=== PATIENT | male | born 1955 | race Caucasian/White ===

== ENCOUNTER → 2020-05-31 | Outpatient (CLI) | payer MEDICARE ==
[~2020-05-31] MED LIST: AMIT10TA PO; BUPIVACAINE/PF-EPI 0.25% 1:200K ONE; FENTANYL PF 100 MCG/2ML ONE; MIDAZOLAM 1 MG/ML, 2ML ONE
== END | disposition home or self-care (01) ==
LOC: STAR 10:23
PROVIDERS: ATTEND Orthopaedic Surgery
DX: Z01.818 Encounter for other preprocedural examination (principal); M75.121 Complete rotator cuff tear or rupture of right shoulder, not specified as traumatic; M17.12 Unilateral primary osteoarthritis, left knee
CPT/HCPCS: 93005

== ENCOUNTER 2020-06-05 09:12 | Day surgery (SDC) | payer MEDICARE ==
[~2020-06-05] VITALS: Ht 180.3 cm; Wt 83.0 kg
[~2020-06-05 09:12] MED LIST changes: -BUPIVACAINE/PF-EPI 0.25% 1:200K ONE; -FENTANYL PF 100 MCG/2ML ONE; -MIDAZOLAM 1 MG/ML, 2ML ONE
[2020-06-05 10:04] VITALS: BP 149/88
[2020-06-05] MEDS ORDERED: LACTATED RINGERS 1,000 ML IV SCH (10:06)
[2020-06-05] MEDS ORDERED: CHLORHEXIDINE 15 ML UDC ONE (10:12)
[2020-06-05] MEDS ORDERED: CHLORHEXIDINE 15 ML UDC MM ONE (10:30)
[2020-06-05] MEDS ORDERED: BUPIVACAINE/PF-EPI 0.25% 1:200K ONE (12:26)
[2020-06-05] MEDS ORDERED: BETAMETHASONE 6 MG/ML, 5ML IM ONE (12:26)
[2020-06-05] MEDS ORDERED: EPHEDRINE 50 MG/ML, 1ML ONE (12:48)
[2020-06-05] MEDS ORDERED: DEXAMETHASONE 4 MG/ML, 1ML ONE (12:48)
[2020-06-05] MEDS ORDERED: ONDANSETRON 2MG/ML, 2ML ONE (12:48)
[2020-06-05] MEDS ORDERED: PROPOFOL 10 MG/ML, 20ML ONE (12:48)
[2020-06-05] MEDS ORDERED: CEFAZOLIN 1,000 MG ONE (12:48)
[2020-06-05] MEDS ORDERED: ONDANSETRON 2MG/ML, 2ML IVPush PRN (13:30)
[2020-06-05] MEDS ORDERED: LABETALOL 5MG/ML, 20ML IV PRN (13:30)
[2020-06-05] MEDS ORDERED: FENTANYL PF 100 MCG/2ML IV PRN (13:30)
[2020-06-05] MEDS ORDERED: HYDROmorphone 1 MG/ML, 1ML INJ IVPush PRN (13:30)
[2020-06-05] MEDS ORDERED: OXYcodone 5 MG/5 ML ORAL.SOL UDC PO PRN (13:30)
[2020-06-05] MEDS ORDERED: hydrALAzine 20 MG/ML, 1ML IV PRN (13:30)
[2020-06-05] MEDS ORDERED: ACETAMINOPHEN 325 MG TABLET PO PRN (13:30)
== END 2020-06-05 17:05 | disposition home or self-care (01) ==
LOC: OUT 09:12
PROVIDERS: ATTEND Orthopaedic Surgery
DX: S46.011A Strain of muscle(s) and tendon(s) of the rotator cuff of right shoulder, initial encounter (principal); Z11.59 Encounter for screening for other viral diseases; S43.491A Other sprain of right shoulder joint, initial encounter; S46.111A Strain of muscle, fascia and tendon of long head of biceps, right arm, initial encounter; M17.12 Unilateral primary osteoarthritis, left knee; M75.41 Impingement syndrome of right shoulder; M94.211 Chondromalacia, right shoulder; M21.062 Valgus deformity, not elsewhere classified, left knee; Z79.899 Other long term (current) drug therapy; Z88.8 Allergy status to other drugs, medicaments and biological substances; Z82.3 Family history of stroke; X58.XXXA Exposure to other specified factors, initial encounter; Y93.89 Activity, other specified; Y92.89 Other specified places as the place of occurrence of the external cause; Y99.8 Other external cause status
CPT/HCPCS: 20610; 29823; 29826; 29827; 29828; 36415; 64415; 87635; C1713; J0690; J0702; J1100; J2405; J2704; J7120